=== PATIENT | male | born 1990 | race Asian ===

== ENCOUNTER → 2019-12-25 08:33 | Outpatient (CLI) | payer BC, SELFPAY ==
[2018-02-16 16:18] VITALS: BMI 33.4
[2019-12-25 10:28] LABS: AST(SGOT) 23 U/L (15-37); Alanine Aminotransfer ALT/SGPT 54 U/L (16-61); Albumin, Serum 3.4 g/dL (3.2-5.0); Alkaline Phosphatase 84 U/L (45-117); Bilirubin, Direct 0.15 mg/dL (0.00-0.30); Cholesterol 213 mg/dL (200); GGTP 63 U/L (15-85); Globulin 4.2 g/dL (2.2-4.2); High Density Lipoprotein 46 mg/dL; Protein, Total 7.6 g/dL (6.4-8.2); Triglycerides 89 mg/dL; Very Low Density Lipoprotein 18 mg/dL (5-40)
[2019-12-25 10:36] LABS: Vitamin D,25 Hydroxy 17.2 ng/mL (29.95-100.01)
== END ==
PROVIDERS: PCP Family Medicine; Referring Provider Internal Medicine Gastroenterology; Visit Provider Internal Medicine Gastroenterology
DX: K76.0 Fatty (change of) liver, not elsewhere classified (principal)
CPT/HCPCS: 36415; 80061; 80076; 82306; 82977

== ENCOUNTER 2021-12-13 16:58 | Outpatient (CLI) | payer BC, SELFPAY ==
[2021-12-13 18:05] LABS: NATERA MAILED SPECIMEN
== END 2021-12-13 23:59 | disposition short-term general hospital (02) ==
LOC: LAB 17:02
PROVIDERS: PCP Family Medicine; Referring Provider Obstetrics & Gynecology; Visit Provider Obstetrics & Gynecology
DX: Z31.440 Encounter of male for testing for genetic disease carrier status for procreative management (principal)
CPT/HCPCS: 36415

== ENCOUNTER 2022-01-18 10:29 | Outpatient (CLI) | payer BC, SELFPAY ==
[2022-01-18 11:39] LABS: NATERA MAILED SPECIMEN
== END 2022-01-18 23:59 | disposition home or self-care (01) ==
LOC: LAB 10:32
PROVIDERS: PCP Family Medicine; Referring Provider Obstetrics & Gynecology; Visit Provider Obstetrics & Gynecology
DX: Z31.440 Encounter of male for testing for genetic disease carrier status for procreative management (principal)
CPT/HCPCS: 36415